=== PATIENT | male | born 1990 | race Caucasian/White ===

== ENCOUNTER 2017-02-06 17:09 | Emergency (ER) | payer OTHER ==
[~2017-02-06] VITALS: Ht 185.4 cm; Wt 141.5 kg
[~2017-02-06 17:09] MED LIST: ATIVAN0.5 MG PO
[2017-02-06] MEDS ORDERED: LEXAPRO20 MG PO (17:20)
[2017-02-06] MEDS ORDERED: XANAX 0.25 MG0.25 MG PO (17:21)
[2017-02-06] MEDS ORDERED: AUGMENTIN 875875 MG PO (18:14)
[2017-02-06] MEDS ORDERED: LEVAQUIN 500 M500 M2 PO (18:23)
[2017-02-06 18:30] VITALS: BP 138/82
== END 2017-02-06 18:46 | disposition home or self-care (01) ==
LOC: ER 17:09
DX: S61.451A Open bite of right hand, initial encounter (principal); W56.51XA Bitten by other fish, initial encounter; Y93.89 Activity, other specified; Y92.89 Other specified places as the place of occurrence of the external cause; Y99.8 Other external cause status